=== PATIENT | male | born 1975 | race African-American/Black ===

== ENCOUNTER 2024-12-16 23:40 | Emergency (ER) | payer OTHER ==
[2024-12-16 23:55] VITALS: RESP 18; TEMP 98.4; BMI 36.5
[2024-12-17] MEDS ORDERED: LIDOCAINE HCL 2% (20ML MULTI-DOSE VIAL) ONE (00:51)
[2024-12-17] MEDS: LIDOCAINE HCL 2% (50ML VIAL) SQ ONE (01:00)
[2024-12-17] MEDS ORDERED: CEPHALEXIN MONOHYDRATE 500 MG CAPSULE (UD) ONE (01:52)
[2024-12-17] MEDS ORDERED: KETOROLAC TROMETHAMINE 30 MG/1 ML VIAL ONE (01:52)
[2024-12-17] MEDS: CEPHALEXIN MONOHYDRATE 500 MG CAPSULE (UD) PO ONE (01:57)
[2024-12-17] MEDS: KETOROLAC TROMETHAMINE 30 MG/1 ML VIAL IM ONE (01:57)
[2024-12-17 02:14] VITALS: BP 147/79; PULSE 71
== END 2024-12-17 02:14 | disposition home or self-care (01) ==
LOC: JER 23:40
PROC: 0H9FXZZ Drainage of Right Hand Skin, External Approach (ICD-10-PCS; principal; 2024-12-16)
PROC: 3E0233Z Introduction of Anti-inflammatory into Muscle, Percutaneous Approach (ICD-10-PCS; 2024-12-16)
DX: L03.011 Cellulitis of right finger (principal)
CPT/HCPCS: 99284-25